=== PATIENT | male | born 1975 | race Caucasian/White ===

== ENCOUNTER 2019-03-14 09:17 | Emergency (ER) | payer OTHER ==
[~2019-03-14] VITALS: Ht 182.9 cm; Wt 109.8 kg
[2019-03-14] MEDS ORDERED: NKM (09:36)
[2019-03-14] MEDS ORDERED: Augmentin 875mg Tab ORAL ONE (10:00)
--- NOTE | 2019-03-14 10:08 | Emergency Room Report ---
History of Present Illness General Chief Complaint: Animal Bite Source: Patient Present Illness HPI Patient present with complaints of Bite to his right thumb reports that this happened yesterday It was the patient's own cat Was bit on 2 different locations on the thumb Reports of the area had become more red and swollen He also had seen some discharge from one of the bite sites Denies any elbow pain denies any shoulder pain and eyes any fevers or chills Allergies: Coded Allergies: No Known Allergies (Unverified , 03/14/19) Patient History Past Medical History: see triage record Pertinent Family History: none Reviewed Nursing Documentation: PMH: Agreed; PSxH: Agreed Nursing Documentation-PMH Past Medical History: No Stated History Review of Systems All Other Systems: negative except mentioned in HPI Physical Exam Vital Signs Date Time Temp Pulse Resp B/P (MAP) Pulse Ox O2 Delivery O2 Flow Rate FiO2 03/14/19 09:30 97.9 82 16 139/78 96 Room Air Sp02 EP Interpretation: reviewed, normal General Appearance: well appearing, no apparent distress Head: normocephalic, atraumatic Eyes: bilateral eye PERRL, bilateral eye EOMI ENT: hearing grossly normal, normal pharynx, TMs + canals normal, uvula midline Neck: full range of motion, supple Respiratory: lungs clear, normal breath sounds Cardiovascular #1: regular rate, rhythm Gastrointestinal: non tender Musculoskeletal: swelling - And some erythema to the thenar eminence of the right thumb, was also for areas of what appeared to be likely puncture wounds from the cat bite. I cannot palpate any obvious fluctuance Neurologic: alert, oriented x3, responsive Skin: other - As above Lymphatic: no adenopathy Medical Decision Making Diagnostic Impression: Primary Impression: Bite by animal ER Course Given the patient's cat bite and given the examination patient initiated on antibiotics Patient requires outpatient antibiotic as well was provided with tetanus shot discussed regarding close follow-up and return to ER for worsening symptoms such as increased redness pain to the joint or fevers Last Vital Signs Date Time Temp Pulse Resp B/P (MAP) Pulse Ox O2 Delivery O2 Flow Rate FiO2 03/14/19 09:30 97.9 82 16 139/78 96 Room Air Status: improved Disposition: HOME, SELF-CARE Condition: Improved Scripts Ibuprofen* (MOTRIN*) 600 Mg Tablet 600 MG ORAL Q8H PRN for For Pain, #20 TAB 0 Refills Prov: Jamehdor,Ali DO 03/14/19 Amoxicillin/Potassium Clav 875-125* (AUGMENTIN 875-125 TABLET*) 1 Each Tablet 1 TAB ORAL TWICE A DAY, #20 TAB Prov: Domingo Oh DO 03/14/19 Additional Instructions: Patient is provided with the discharge instructions notified to follow up with primary doctor in the next 2-3 days otherwise return to the er with any worsening symptoms. Please note that this report is being documented using [employer] technology. This can lead to erroneous entry secondary to incorrect interpretation by the dictating instrument. Domingo Oh DO Mar 14, 2019 10:08
[2019-03-14] MEDS ORDERED: IBUPROFEN600 MG ORAL (10:37)
[2019-03-14] MEDS ORDERED: AUGMENTIN 875-1 EAC1 ORAL (10:37)
[2019-03-14] MEDS ORDERED: Tetanus/Diptheria/Pertussis IM ONE (10:45)
[2019-03-14 11:00] VITALS: BP 139/78
[2019-03-14 11:12] VITALS: BP 139/78
== END 2019-03-14 11:13 | disposition home or self-care (01) ==
LOC: EMR 10:43
DX: S61.051A Open bite of right thumb without damage to nail, initial encounter (principal); W55.01XA Bitten by cat, initial encounter; Y92.9 Unspecified place or not applicable; Z23 Encounter for immunization
CPT/HCPCS: 90471; 90715; 99283